=== PATIENT | female | born 1965 | race Caucasian/White ===

== ENCOUNTER → 2020-10-13 | Outpatient (CLI) | payer OTHER ==
[~2020-10-13] MED LIST: AIRDUO DIGIHAL1 EAC2 INH; CLARITIN 10MG T10 MG PO; CLARITIN10 M2 PO; COLACE 100MG C100 MG PO; ELIQUIS5 MG PO; FLAGYL500 MG PO; FLEXERIL 10 MG10 MG PO; FLONASE 0.05% N16 GM; HYDROCODON-ACE1 EAC2 PO; IBUPROFEN600 MG PO; LEVAQUIN750 MG PO; LEVOTHYROXINE25 MCG PO; LEXAPRO10 MG PO; LOPRESSOR 25 MG25 MG PO; MEGACE 400400 MG/10 PO; MONTELUKAST SOD10 MG PO; NORCO 5-325 TA1 EACH PO; OMEPRAZOLE20 M1 PO; OMEPRAZOLE40 MG PO; OMNICEF 300 MG300 MG PO; ONDANSETRON ODT4 MG PO; PANTOPRAZOLE SO40 MG PO; PERCOCET 5/325 T1 EA PO; PROTONIX 40 MG40 M1 PO; SINGULAIR10 MG PO; SPIRIVA RESPIMAT4 GM INH; TESSALON PERLE100 MG PO; VENTOLIN HFA 66.7 GM INH; VITAMIN D21250 MCG PO; XARELTO15 MG PO; ZOFRAN8 MG PO; [UNRECOGNIZED DRUG - OTHER] PO
== END ==
LOC: CT 09-22 10:00
DX: C34.11 Malignant neoplasm of upper lobe, right bronchus or lung (principal); C79.51 Secondary malignant neoplasm of bone; C77.8 Secondary and unspecified malignant neoplasm of lymph nodes of multiple regions; Z87.891 Personal history of nicotine dependence; J90 Pleural effusion, not elsewhere classified; E27.8 Other specified disorders of adrenal gland
CPT/HCPCS: 71260; Q9967

== ENCOUNTER 2020-11-02 09:03 | Inpatient (IN) | payer OTHER ==
[~2020-11-02] VITALS: Ht 165.1 cm; Wt 68.0 kg
[~2020-11-02 09:03] MED LIST changes: -CLARITIN10 M2 PO; -HYDROCODON-ACE1 EAC2 PO; -LEVOTHYROXINE25 MCG PO; -OMEPRAZOLE40 MG PO; -OMNICEF 300 MG300 MG PO; -PROTONIX 40 MG40 M1 PO; -SINGULAIR10 MG PO; -SPIRIVA RESPIMAT4 GM INH
[2020-11-02 10:24] LABS: HEMOGLOBIN 8.8 gm/dl (12.3-15.3); RED BLOOD COUNT 3.42 M/UL (4.00-5.10); WHITE BLOOD COUNT 8.5 K/UL (4.5-11.0)
[2020-11-02 11:21] LABS: BUN/CREATININE RATIO 18 (0-10)
[2020-11-02] MEDS ORDERED: OMEPRAZOLE40 MG PO (12:27)
[2020-11-02] MEDS ORDERED: SPIRIVA RESPIMAT4 GM INH (12:28)
[2020-11-02] MEDS ORDERED: HYDROCODON-ACE1 EAC2 PO (13:01)
[2020-11-02] MEDS ORDERED: ELIQUIS5 MG PO (13:01)
[2020-11-02] MEDS ORDERED: SINGULAIR10 MG PO (13:02)
[2020-11-02] MEDS ORDERED: CLARITIN10 M2 PO (13:02)
[2020-11-02] MEDS ORDERED: FLONASE 0.05% N16 GM (13:04)
[2020-11-02] MEDS ORDERED: LEVOTHYROXINE25 MCG PO (13:05)
[2020-11-02] MEDS ORDERED: PROTONIX 40 MG40 M1 PO (13:06)
[2020-11-02] MEDS ORDERED: LOPRESSOR 25 MG25 MG PO (13:07)
[2020-11-02] MEDS ORDERED: TESSALON PERLE100 MG PO (13:08)
[2020-11-03 04:40] LABS: BUN/CREATININE RATIO 10 (0-10)
[2020-11-03 04:50] LABS: WHITE BLOOD COUNT 8.2 K/UL (4.5-11.0)
[2020-11-03 04:53] LABS: HEMOGLOBIN 7.5 gm/dl (12.3-15.3); RED BLOOD COUNT 2.88 M/UL (4.00-5.10)
--- NOTE | 2020-11-03 08:39 | NUR ---
MORPHINE 2 MG IVP GIVEN STAT PER DR. ARAGON AFTER BEDSIDE THORACENTESIS PROCEDURE. PATIENT TOLERATED WELL. PORTABLE CXR ORDERED.
[2020-11-03 09:35] LABS: BODY FLUID SOURCE PLEURAL
[2020-11-03 09:36] LABS: MONONUCLEAR CELLS 94.6 (75-100); POLYMORPHONUCLEAR % 5.4 (0-25); RBC (AUTOMATED) 9000 (0-100000); WBC (AUTOMATED) 333 (0-500)
[2020-11-03 09:49] LABS: LDH, BODY FLUID 422 U/L
[2020-11-03 10:27] LABS: TOTAL PROTEIN, BODY FLUID 4.5 gm/dL
--- NOTE | 2020-11-03 17:01 | NUR ---
0830: ASSISTED DR. ARAGON WITH BEDSIDE RIGHT THORACENTESIS PROCEDURE. CONSENT OBTAINED AND UNIVERSAL PROTOCOL COMPLETED. PATIENT TOLERATED PROCEDURE WELL. DR. ARAGON PERFORMED UNDER ULTRASOUND GUIDANCE. 1500 ML DARK YELLOW FLUID NOTED IN COLLECTION BAG.
[2020-11-04 04:19] LABS: BUN/CREATININE RATIO 8 (0-10)
[2020-11-04 12:41] LABS: HEMOGLOBIN 7.7 gm/dl (12.3-15.3); RED BLOOD COUNT 2.98 M/UL (4.00-5.10); WHITE BLOOD COUNT 8.8 K/UL (4.5-11.0)
[2020-11-05 05:06] LABS: BUN/CREATININE RATIO 6 (0-10)
[2020-11-05] MEDS ORDERED: OMNICEF 300 MG300 MG PO (11:42)
== END 2020-11-05 15:28 | disposition home or self-care (01) | DRG 872 ==
LOC: ER1 09:03 → CDU 11:54 → MED SURG 4 13:58
PROVIDERS: Emergency Medicine; Physician Assistant Medical; ADMIT Internal Medicine
PROC: 0W993ZX Drainage of Right Pleural Cavity, Percutaneous Approach, Diagnostic (ICD-10-PCS; principal; 2020-11-03)
DX: A41.9 Sepsis, unspecified organism (principal); N30.00 Acute cystitis without hematuria; J90 Pleural effusion, not elsewhere classified; C34.2 Malignant neoplasm of middle lobe, bronchus or lung; M84.58XA Pathological fracture in neoplastic disease, other specified site, initial encounter for fracture; C79.9 Secondary malignant neoplasm of unspecified site; G83.89 Other specified paralytic syndromes; G93.89 Other specified disorders of brain; E78.5 Hyperlipidemia, unspecified; K21.9 Gastro-esophageal reflux disease without esophagitis; M19.90 Unspecified osteoarthritis, unspecified site; Z20.822 Contact with and (suspected) exposure to COVID-19; F41.9 Anxiety disorder, unspecified; E87.6 Hypokalemia; D50.9 Iron deficiency anemia, unspecified; H53.8 Other visual disturbances; J44.9 Chronic obstructive pulmonary disease, unspecified; Z85.118 Personal history of other malignant neoplasm of bronchus and lung; Z86.711 Personal history of pulmonary embolism; Z88.2 Allergy status to sulfonamides; Z82.3 Family history of stroke; Z90.89 Acquired absence of other organs; Z87.891 Personal history of nicotine dependence
CPT/HCPCS: 0240U; 36415; 70450; 70551; 70552; 71045; 80048; 80053; 81001; 82150; 82550; 82553; 82945; 83605; 83615; 83735; 83874; 83880; 83986; 84155; 84157; 84484; 85025; 87040; 87070; 87086; 87205; 89051; 93005; 94640; 94664; 94760; 96365; 96366; 96367; 99285; A9577; C1729; J0456; J0696; J2270; J7030